=== PATIENT | male | born 1995 | race Caucasian/White ===

== ENCOUNTER 2016-11-23 05:19 | Emergency (ER) | payer OTHER ==
[~2016-11-23 05:19] MED LIST: ALBUTEROL HFA INH; BACTRIM DS TABL1 TA1 PO; BENTYL10 M1 PO; DELTASONE20 MG PO; FAMOTIDINE PO; NO MEDICATIONS; PRILOSEC20 MG PO; TYLENOL #3 PO; ZOFRAN PO
[2016-11-23 07:00] LABS: BUN/CREATININE RATIO 11.42; CALCIUM SERUM 8.6 mg/dL (8.4-10.2); CREATININE SERUM 0.7 mg/dL (0.6-1.4); GLOM FILT RATE Estimated 133.1 mL/min (>60)
== END 2016-11-23 08:20 | disposition home or self-care (01) ==
LOC: CED 05:19
PROVIDERS: Emergency Medicine
DX: F10.129 Alcohol abuse with intoxication, unspecified (principal); Z79.899 Other long term (current) drug therapy
CPT/HCPCS: 80048; 96365; 96375; 99284; G0480; J2405; J3411; J3475

== ENCOUNTER 2017-03-28 00:41 | Emergency (ER) | payer OTHER ==
[~2017-03-28] VITALS: Ht 170.2 cm; Wt 59.0 kg
== END 2017-03-28 01:17 | disposition home or self-care (01) ==
LOC: SED 00:41
DX: K08.89 Other specified disorders of teeth and supporting structures (principal); K21.9 Gastro-esophageal reflux disease without esophagitis
CPT/HCPCS: 99282